=== PATIENT | male | born 1955 | race Caucasian/White ===

== ENCOUNTER 2023-12-27 15:31 | Emergency (ER) | payer MEDICARE, OTHER, SELFPAY ==
[2023-12-27 15:33] VITALS: BP 133/91
[2023-12-27 15:50] VITALS: BMI 29.0
--- NOTE | 2023-12-27 16:34 | ED.GENMED ---
History of Present Illness
General
Chief Complaint: Allergic Reaction
Time Seen by Provider: 12/27/23 16:19
History of Present Illness
History of Present Illness:
68-year-old male presents to the emergency department for evaluation after being stung by multiple bees on the left lower extremity. He used his EpiPen x 1 before coming to the hospital. He reports feeling leg itching but denies any chest
tightness, wheezing, facial swelling, or tongue swelling. He feels well currently
Past History
Past History
ED Past Medical History: HTN, Hypercholesterolemia and Other (Kidney stones, diverticulosis)
ED Past Surgical History: Orthopedic and Urological
Social History
Tobacco: Non-smoker
Personal:
Living: with family
Family History
Family History: Other (father with prostate cancer, mother with hypertension); Negative Early CAD
Review of Systems
Review of Systems
Allergies reviewed?: Yes
All Other Systems: ROS reviewed and negative except as documented in HPI and ROS
Phy Exam
Physical Exam
Physical Exam:
GEN: Well appearing, NAD, WDWN
HEENT: Oral mucosa moist, no scleral icterus, no angioedema
Cardiac: Regular rate
Lung: No respiratory distress, no tachypnea
MSK: No gross deformity or injuries
Skin: Good color, no pallor or jaundice, several urticarial lesions to left lower extremity, no lesions identified
Neuro: AO x3, moves all extremities freely
Psych: Calm, cooperative
Course
Vital Signs
Initial and Last Documented VS:
Initial Vital Signs
Temp Pulse Resp BP Pulse Ox
99.0 F 115 16 133/91 98
12/27/23 15:33 12/27/23 15:33 12/27/23 15:33 12/27/23 15:33 12/27/23 15:33
Last Documented Vital Signs
Temp Pulse Resp BP Pulse Ox
99.0 F 90 17 141/90 96
12/27/23 15:33 12/27/23 16:43 12/27/23 16:43 12/27/23 16:43 12/27/23 16:43
MDM/Problems Addressed
MDM/Problems Addressed:
Symptoms are essentially resolved, discussed further supportive care and refills provided for EpiPen
*Critical Care Note
Total Time (30-74mins, 75-104mins- exclusive of procedures): Not Applicable
ED Attending Note
-
Portions of this chart may have been created with voice recognition software.� Occasional wrong word or��sound alike� substitutions may have occurred due to the inherent limitations of voice recognition software.
Discharge Plan
Departure
Patient Disposition: Home (Routine Discharge)
Date of Disposition: 12/27/23
Time of Disposition: 16:34
Patient with high blood pressure during this ER visit?: No
Discharge Problem:
Local reaction to bee sting
Instructions: Insect Bites and Stings ED
Prescriptions:
New
epinephrine [EpiPen] 0.3 mg/0.3 mL auto-injector
0.3 mg IM ONCE Qty: 2 0RF
No Action
atorvastatin 10 MG tablet
20 mg PO MOWEFR
Patient Comments:
mtwrf
coenzyme Q10 [Co Q-10] 100 MG capsule
100 mg PO DAILY
tamsulosin 0.4 MG capsule
0.4 mg PO DAILY
lisinopril 10 MG tablet
5 mg PO DAILY
finasteride 5 mg Tablet
5 mg PO DAILY
ascorbic acid (vitamin C) [Vitamin C] 1,000 mg Tablet
1,000 mg PO BID
therapeutic multivitamin Tablet
1 tab PO DAILY
vitamin B complex Capsule
1 cap PO DAILY
cholecalciferol (vitamin D3) [Vitamin D3] 125 mcg (5,000 unit) Tablet
250 mcg PO DAILY
melatonin 10 mg Tablet
10 mg PO HS
quercetin 500 mg Capsule
500 mg PO DAILY
magnesium
500 mg PO SUTUTHSA
zinc
50 mg PO DAILY
epinephrine [EpiPen 2-Parish] 0.3 mg/0.3 mL auto-injector
0.3 mg IM ONCE PRN (Reason: bees)
Referrals:
Marcus Coates, DO [Family Provider] -
Activity Restrictions/Additional Instructions:
Take 25-50mg diphenhydramine (Benadryl) every 6-8 hours OR 10mg cetirizine (Zyrtec) twice dialy as needed for itching
Interventions
Interventions:
*Risk Screen - Suicide Last Done: 12/27/23 16:34
*General Assessment Last Done: 12/27/23 16:34
*Neglect/Abuse Screening Last Done: 12/27/23 16:34
ED- Fall Risk Assessment Last Done: 12/27/23 15:50
*Nursing Disposition Last Done: 12/27/23 16:44
ED- Cardiac Assessment Last Done: 12/27/23 15:50
ED-Skin Assessment Last Done: 12/27/23 15:50
Discharge Date and Time
Discharge Date/Time: 12/27/23 16:44
Print Language: GERMAN
[2023-12-27 16:43] VITALS: BP 141/90
== END 2023-12-27 16:44 | disposition home or self-care (01) ==
LOC: EMR 15:31
PROVIDERS: EMERGENCY PHYSICIAN Emergency Medicine; FAMILY PHYSICIAN Family Medicine
DX: T63.441A Toxic effect of venom of bees, accidental (unintentional), initial encounter (principal); Y92.9 Unspecified place or not applicable; I10 Essential (primary) hypertension; E78.00 Pure hypercholesterolemia, unspecified
CPT/HCPCS: 99282

== ENCOUNTER 2025-06-10 18:40 | Emergency (ER) | payer MEDICARE, OTHER, SELFPAY ==
[2025-06-10 19:04] VITALS: BP 177/104
--- NOTE | 2025-06-10 20:46 | ED.GENMED ---
History of Present Illness
General
Chief Complaint: Fall
Source: patient
Exam Limitations: none
Time Seen by Provider: 06/10/25 20:21
Nursing documentation reviewed up to this point in time: agreed with
History of Present Illness
History of Present Illness:
Note:
CHIEF COMPLAINT(S)
Fall with head injury and thigh pain.
HISTORY OF PRESENT ILLNESS
The patient is a 69-year-old male who presented after falling while carrying a heavy toolbox into his basement. He believed he had reached the final step but was mistaken and there was one step still left to go, and he lost his footing and
subsequently fell, and subsequently fell, hitting his head on the toolbox when he fell to the ground. He was able to get up on his own and climb the stairs back up to the 1st floor. He reports soreness in the thigh, describing it as non-fractured
but heavily bruised, with increasing pain since the incident. The patient denies loss of consciousness during the fall and reports no dizziness. He is able to bear weight on the affected side, albeit with soreness. He denies neck pain and has no
numbness or tingling in the arms. There is no tenderness over the spinous processes. There is a cut on the head, likely from the toolbox, patient has had stitches in the past and has done well with injectable lidocaine. The patient has had a tetanus
shot in the past five years. He reports the sensation of stiffness but denies hand numbness or tingling in the finger and notes he had some bleeding.
EXTERNAL RECORDS REVIEWED
A CT scan of the head was performed, which showed no acute injuries.
PHYSICAL EXAM
General: Patient is well appearing and in no acute distress; non-toxic
Skin: Warm and dry, no rashes or lesions
Head: No tenderness to palpation of the facial bones, no periorbital edema. 5 cm well approximated laceration above the right eyebrow.
Eyes: Sclera non-icteric. EOMs intact. No entrapment.
Neck: No midline cervical spinal tenderness, full range of motion of cervical spine
Cardiac: Regular rate and rhythm, no murmurs, no tenderness palpation over the ribs or chest wall
Peripheral Vascular: No lower extremity swelling or edema
Pulm: Normal respiratory effort
Abdomen: No abdominal tenderness to palpation
Musculoskeletal: Small abrasion noted over the right thumb that is actively bleeding, full range of motion of the right upper extremity, no pain with passive range of motion, no visible bony deformity. Mild tenderness palpation noted on the right
anterior thigh, no pain with internal/external rotation of the hip
Neuro: CN II-XII intact, no focal neurologic deficits.
Psychiatric: Appropriate mood and affect.
PLAN
- Suture forehead laceration
- Glue bleeding finger abrasion
- CT scan of the head
- X-ray of the finger and the hip
DIFFERENTIAL DIAGNOSIS
The Differential Diagnosis includes, in no particular order and is not limited to:
- Contusion
- Laceration
- Subtle femoral fracture
- Cervical strain
- Concussion
- Soft tissue injury
- Muscle strain
- Hematoma
- Superficial wound infection
- Syncope secondary to fall
SUMMARY OF ENCOUNTER
The patient, a 69-year-old male, was seen for evaluation following a fall that resulted in a head injury and thigh pain. Management included securing a head CT, resulting in negative findings, and planning for the laceration repair with stitches
using Lidocaine. Pain in the thigh prompted further assessment via X-ray as a precaution against potential fractures.
CT scan without acute intracranial abnormality. Patient has no midline cervical spinal tenderness, no upper extremity weakness. Wound was repaired. Patient stable for discharge.
DISPOSITION
Discharge with follow-up instructions after lacerations are attended to and X-ray results are reviewed.
MEDICATION RECONCILIATION
- Administer Lidocaine for local anesthesia before suturing the head laceration.
MEDICAL DECISION MAKING
-Complexity of Data Reviewed: Chronic conditions affecting care
In this section also Include the DDx list from differential diagnosis in the system prompt.
DATA
Category 1
- Clinical information obtained from the patient.
- CT scan of the head was independently interpreted as negative for any acute injury.
- X-ray of the thigh considered and ordered to rule out subtle fractures.
Past History
Past History
ED Past Medical History: HTN, Hypercholesterolemia and Other (Kidney stones, diverticulosis)
ED Past Surgical History: Orthopedic and Urological
Social History
Tobacco: Non-smoker
Personal:
Living: with family
Family History
Family History: Other (father with prostate cancer, mother with hypertension); Negative Early CAD
Phy Exam
Physical Exam
Physical Exam:
see hpi
Course
Orders/Labs/Results
Orders:
Orders
06/10/25 19:09
CT Head W/o Iv Contrast Urgent
Comment:
Reason For Exam: fall
Finger(s)/Thumb 2 View Rt [CR Finger(s)/thumb Min 2 Vw Rt] Urgent
Comment:
Reason For Exam: fall
06/10/25 20:52
CR Hip - RT w/wo Pel 2-3 Vw* Urgent
Comment:
Reason For Exam: right hip pain following fall
Include a pelvis x-ray?: Yes
Vital Signs
Initial and Last Documented VS:
Initial Vital Signs
Temp Pulse Resp BP Pulse Ox
98.5 F 82 16 177/104 98
06/10/25 19:04 06/10/25 19:04 06/10/25 19:04 06/10/25 19:04 06/10/25 19:04
Last Documented Vital Signs
Temp Pulse Resp BP Pulse Ox
98.5 F 71 19 140/92 99
06/10/25 19:04 06/10/25 22:44 06/10/25 22:44 06/10/25 22:44 06/10/25 22:44
Procedures
Laceration Closure
right eyebrow:
Status of Wound: clean
Size of Wound in cm: 5
Description of Wound Edges: sharp
Preparation: cleaned with saline and cleaned with Betadine
Anesthesia: 1% Lidocaine with epi
Revision/Debridement: routine- no revision
Wound exploration: explored to base- no FB
Type of Closure: single layer closure
Skin Closure Material: 4-0 nylon
Number of sutures: 9
*Pulse Oximetry
SaO2: 98
Oxygen Mode of Delivery: Room air
Patient hypoxic: no
*Critical Care Note
Total Time (30-74mins, 75-104mins- exclusive of procedures): Not Applicable
ED Attending Note
-
Portions of this chart may have been created with voice recognition software.� Occasional wrong word or��sound alike� substitutions may have occurred due to the inherent limitations of voice recognition software.
Discharge Plan
Departure
Patient Disposition: Home (Routine Discharge)
Date of Disposition: 06/10/25
Time of Disposition: 23:27
Patient with high blood pressure during this ER visit?: Yes
Condition: Good
Discharge Problem:
Facial laceration, Acute head trauma, Contusion of hip
Instructions: Wound Care (DC), Laceration Repair With Stitches (DC), Preventing falls in adults, BLOOD PRESSURE
Prescriptions:
No Action
atorvastatin 10 MG tablet
20 mg PO MOWEFR
Patient Comments:
mtwrf
coenzyme Q10 [Co Q-10] 100 MG capsule
100 mg PO DAILY
tamsulosin 0.4 MG capsule
0.4 mg PO DAILY
lisinopril 10 MG tablet
5 mg PO DAILY
finasteride 5 mg Tablet
5 mg PO DAILY
ascorbic acid (vitamin C) [Vitamin C] 1,000 mg Tablet
1,000 mg PO BID
therapeutic multivitamin Tablet
1 tab PO DAILY
vitamin B complex Capsule
1 cap PO DAILY
cholecalciferol (vitamin D3) [Vitamin D3] 125 mcg (5,000 unit) Tablet
250 mcg PO DAILY
melatonin 10 mg Tablet
10 mg PO HS
quercetin 500 mg Capsule
500 mg PO DAILY
magnesium
500 mg PO SUTUTHSA
zinc
50 mg PO DAILY
epinephrine [EpiPen 2-Parish] 0.3 mg/0.3 mL auto-injector
0.3 mg IM ONCE PRN (Reason: bees)
epinephrine [EpiPen] 0.3 mg/0.3 mL auto-injector
0.3 mg IM ONCE Qty: 2 0RF
Referrals:
UNKNOWN - PT NOT,INTERVIEWE [Unknown Provider]
Activity Restrictions/Additional Instructions:
You can get your stitches removed in 1 week to 10 days. Please keep dressing in place for 24 hours. After 24 hours, you can remove dressing and let water run over the wound. Please not scrub the wound. Please not use hydrogen peroxide or alcohol
over the wound. You can use bacitracin over the wound as needed. Your x-ray showed no evidence of fracture. Your CAT scan of the head showed no evidence of intracranial bleeding.
Please call your primary care provider to schedule follow-up appointment.
PLEASE RETURN TO ER SHOULD YOU DEVELOP ANY DRAINAGE FROM YOUR WOUND, SURROUNDING REDNESS, INCREASING PAIN, OR ANY OTHER SIGNS OR SYMPTOMS WORRISOME TO YOU.
Interventions
Interventions:
*General Assessment Last Done: 06/10/25 19:09
*Neglect/Abuse Screening Last Done: 06/10/25 20:07
*ED COVID-19 Vaccine History Last Done: 06/10/25 20:07
*ED Influenza Vaccine History Last Done: 06/10/25 20:07
[facility] Risk Assessment Tool Last Done: 06/10/25 20:02
*Risk Screen - Suicide (C-SSRS) Last Done: 06/10/25 20:07
*Nursing Disposition Last Done: 06/10/25 23:40
ED-Musculoskeletal Assessment Last Done: 06/10/25 20:07
ED- Neurological Assessment Last Done: 06/10/25 20:07
ED-Skin Assessment Last Done: 06/10/25 20:07
Discharge Date and Time
Discharge Date/Time: 06/10/25 23:40
Print Language: GAMBIAN
[2025-06-10 22:44] VITALS: BP 140/92
== END 2025-06-10 23:40 | disposition home or self-care (01) ==
LOC: EMR 18:40
PROVIDERS: EMERGENCY PHYSICIAN Emergency Medicine; FAMILY PHYSICIAN Family Medicine
DX: S01.111A Laceration without foreign body of right eyelid and periocular area, initial encounter (principal); S70.01XA Contusion of right hip, initial encounter; W10.9XXA Fall (on) (from) unspecified stairs and steps, initial encounter; W22.8XXA Striking against or struck by other objects, initial encounter; Y92.008 Other place in unspecified non-institutional (private) residence as the place of occurrence of the external cause; I10 Essential (primary) hypertension; E78.00 Pure hypercholesterolemia, unspecified; Z82.49 Family history of ischemic heart disease and other diseases of the circulatory system
CPT/HCPCS: 99284; 12013; 70450; 73140; 73502